=== PATIENT | male | born 1940 | race Two or more races ===

== ENCOUNTER 2018-04-04 08:58 | Outpatient (CLI) | payer OTHER | END 2018-04-04 09:13 | disposition home or self-care (01) | LOC: RAD 501 08:58 | DX: M54.6 Pain in thoracic spine (principal); M54.5 Low back pain; M54.16 Radiculopathy, lumbar region ==

== ENCOUNTER → 2018-04-05 | Outpatient (CLI) | payer OTHER | END | disposition home or self-care (01) | LOC: RAD 501 09:53 | DX: M54.2 Cervicalgia (principal) ==